=== PATIENT | female | born 2000 | race Caucasian/White ===

== ENCOUNTER 2021-08-19 01:13 | Emergency (ER) | payer SELFPAY ==
[~2021-08-19] VITALS: Ht 144.8 cm; Wt 59.0 kg
[~2021-08-19 01:13] MED LIST: AMOXICILLI250 MG/5 M OR; AMOXICILLI400 MG/5 M PO; AMOXICILLIN500 MG PO; FLUTICASONE50 MCG; NASONEX50 MCG/AC; NO CURRENT MEDS; NO HOME MEDS; PANTOPRAZOLE SO40 MG PO; SINGULAIR5 MG PO; TOPAMAX25 MG PO; TRIAMCINOLON0.11 EX; ranitidine
[2021-08-19 01:49] VITALS: BP 136/93
[2021-08-19 02:00] VITALS: BP 127/78
[2021-08-19 02:18] LABS: URINE BILIRUBIN - DIPSTICK NEGATIVE (NEGATIVE); URINE COLOR YELLOW; URINE GLUCOSE - DIPSTICK NEGATIVE (NEGATIVE); URINE KETONE NEGATIVE (NEGATIVE); URINE PROTEIN - DIPSTICK NEGATIVE (NEG-TRACE)
[2021-08-19 02:20] LABS: HEMATOCRIT 40.2 % (37.0-47.0); HEMOGLOBIN 13.9 g/dl (12.0-16.0); IMMATURE GRANULOCYTES 0.6 % (0.0-5.0); MEAN CORPUSCULAR HGB 29.4 pG CALC (26.0-32.0); MEAN CORPUSCULAR HGB CONC 34.6 g/dL CAL (32.0-36.0); NEUT# 5.65 thou/uL (2.00-7.15); RED BLOOD COUNT 4.73 mill/uL (4.20-5.60); RED CELL DISTRI WIDTH 11.7 % (11.5-15.5)
[2021-08-19 02:25] LABS: URINE BLOOD DIPSTICK NEGATIVE (NEGATIVE); URINE LEUK ESTERASE SMALL (NEGATIVE); URINE NITRITE - DIPSTICK NEGATIVE (Negative)
[2021-08-19 02:26] LABS: URINE BACTERIA MODERATE hpf; URINE EPITHELIAL CELLS FEW EPI/hpf (0-FEW)
[2021-08-19 02:27] LABS: URINE YEAST MODERATE hpf
[2021-08-19 02:30] VITALS: BP 130/87
[2021-08-19 02:38] LABS: ALBUMIN 4.4 g/dL (3.2-5.0); ALKALINE PHOSPHATASE 68 u/l (38-126); AMYLASE 61 u/l (30-110); ANION GAP 14 (6-22 (CALC)); BILIRUBIN, TOTAL 0.4 mg/dL (0.0-1.4); BUN 9 mg/dL (7-17); BUN/CREATININE RATIO 16 (12-20 (CALC)); CARBON DIOXIDE 23 mmol/l (22-30); CHLORIDE 107 mmol/l (95-108); CREATININE 0.6 mg/dL (0.5-1.0); GFR > 60 ML/MIN (>=60 (CALC)); GFR FOR AFR.AMER. > 60 ML/MIN (>=60 (CALC)); LIPASE 56 u/l (23-300); POTASSIUM 3.7 mmol/l (3.5-5.1); SGOT/AST 19 u/l (14-36); SODIUM 140 mmol/l (137-146); TOTAL PROTEIN 7.6 g/dL (6.3-8.2)
[2021-08-19 02:55] LABS: BETA-HCG, QUANT(RESULT NUMBER) 6033 mIU/mL
[2021-08-19 03:01] VITALS: BP 107/67
[2021-08-19] MEDS ORDERED: KEFLEX500 MG PO (03:18)
[2021-08-19 03:20] VITALS: BP 107/67
== END 2021-08-19 03:25 | disposition home or self-care (01) | DRG 832 ==
LOC: ED 01:13
PROVIDERS: Emergency Medicine
DX: O23.41 Unspecified infection of urinary tract in pregnancy, first trimester (principal); N39.0 Urinary tract infection, site not specified; Z3A.01 Less than 8 weeks gestation of pregnancy; Z67.10 Type A blood, Rh positive

== ENCOUNTER 2021-10-06 20:53 | Emergency (ER) | payer SELFPAY ==
[~2021-10-06] VITALS: Ht 144.8 cm; Wt 47.4 kg
[~2021-10-06 20:53] MED LIST changes: +KEFLEX500 MG PO
[2021-10-06 21:38] VITALS: BP 128/87
[2021-10-06 21:46] VITALS: BP 116/87
[2021-10-06 22:14] LABS: URINE BLOOD DIPSTICK TRACE-INTACT (NEGATIVE); URINE GLUCOSE - DIPSTICK 100 mg/dL (NEGATIVE); URINE KETONE >=80 mg/dL (NEGATIVE); URINE PROTEIN - DIPSTICK 100 mg/dL (NEG-TRACE); URINE SPECIFIC GRAVITY >=1.030
[2021-10-06 22:16] LABS: HEMATOCRIT 43.8 % (37.0-47.0); IMMATURE GRANULOCYTES 0.4 % (0.0-5.0); MEAN CORPUSCULAR HGB 29.7 pG CALC (26.0-32.0); MEAN CORPUSCULAR HGB CONC 37.4 g/dL CAL (32.0-36.0); NEUT# 7.94 thou/uL (2.00-7.15); RED BLOOD COUNT 5.52 mill/uL (4.20-5.60); RED CELL DISTRI WIDTH 12.1 % (11.5-15.5)
[2021-10-06 22:17] LABS: HEMOGLOBIN 16.4 g/dl (12.0-16.0); MEAN CELL VOLUME 79.3 fL CALC (80.0-100.0)
[2021-10-06 22:17] LABS: URINE BILIRUBIN - DIPSTICK MODERATE (NEGATIVE); URINE COLOR COLORLESS; URINE LEUK ESTERASE SMALL (NEGATIVE); URINE NITRITE - DIPSTICK NEGATIVE (Negative)
[2021-10-06 22:21] VITALS: BP 120/87
[2021-10-06] MEDS ORDERED: PRENATAL VITAMIN (22:21)
[2021-10-06 22:27] LABS: URINE SQUAMOUS EPITHELIAL CELL MODERATE EPI/hpf (0-FEW); URINE TRICHOMONAS RARE hpf; URINE WBC 20-50 WBC/hpf (0-5)
[2021-10-06 22:31] VITALS: BP 121/89
[2021-10-06 22:46] LABS: ALBUMIN 4.9 g/dL (3.2-5.0); ALKALINE PHOSPHATASE 88 u/l (38-126); BUN 7 mg/dL (7-17); BUN/CREATININE RATIO 16 (12-20 (CALC)); CHLORIDE 101 mmol/l (95-108); CREATININE 0.5 mg/dL (0.5-1.0); GFR FOR AFR.AMER. > 60 ML/MIN (>=60 (CALC)); GFR OTHER RACES > 60 ML/MIN (>=60 (CALC)); POTASSIUM 3.2 mmol/l (3.5-5.1); SGOT/AST 33 u/l (14-36); SODIUM 133 mmol/l (137-146); TOTAL PROTEIN 8.9 g/dL (6.3-8.2)
[2021-10-06 22:47] LABS: ANION GAP 18 (6-22 (CALC)); BILIRUBIN, TOTAL 1.3 mg/dL (0.0-1.4); CARBON DIOXIDE 17 mmol/l (22-30)
[2021-10-06 23:00] VITALS: BP 109/72
[2021-10-06] MEDS ORDERED: PROMETHAZINE HY25 M1 PO (23:19)
[2021-10-06] MEDS ORDERED: METRONIDAZOL0.752 VA (23:19)
[2021-10-06 23:30] VITALS: BP 109/64
[2021-10-07 00:01] VITALS: BP 109/64; BP 126/58
== END 2021-10-07 00:12 | disposition home or self-care (01) | DRG 832 ==
LOC: ED 20:53
PROVIDERS: Family Medicine
DX: O21.9 Vomiting of pregnancy, unspecified (principal); O98.311 Other infections with a predominantly sexual mode of transmission complicating pregnancy, first trimester; A59.00 Urogenital trichomoniasis, unspecified; Z3A.11 11 weeks gestation of pregnancy

== ENCOUNTER 2022-01-23 19:39 | Emergency (ER) | payer OTHER ==
[~2022-01-23] VITALS: Ht 144.8 cm; Wt 52.2 kg
[~2022-01-23 19:39] MED LIST changes: +METRONIDAZOL0.752 VA; +PRENATAL VITAMIN; +PROMETHAZINE HY25 M1 PO
[2022-01-23 20:28] VITALS: BP 131/80
== END 2022-01-23 21:41 | disposition left against medical advice (07) | DRG 951 ==
LOC: ED 19:39 → LWOBS 21:40
DX: Z53.21 Procedure and treatment not carried out due to patient leaving prior to being seen by health care provider (principal)